=== PATIENT | female | born 1980 | race Caucasian/White ===

== ENCOUNTER 2017-11-08 14:32 | Emergency (ER) | payer OTHER ==
[~2017-11-08] VITALS: Ht 180.3 cm; Wt 74.8 kg
--- NOTE | 2017-11-08 14:32 | NUR ---
PT CAME BACK FOR DISCHARGE INSTRUCTIONS. PRESCRIPTION GIVEN.
[2017-11-08 14:35] VITALS: BP 148/74
[2017-11-08] MEDS ORDERED: KETOROLAC TROMETHAMINE INJ 30 MG/ML VIAL ONE (14:58)
[2017-11-08] MEDS ORDERED: HYDROCODONE/APAP 10/325MG 1 EA TABLET ONE (14:59)
[2017-11-08] MEDS ORDERED: HYDROCODONE/APAP 10/325MG 1 EA TABLET PO ONE (15:00)
[2017-11-08] MEDS ORDERED: KETOROLAC TROMETHAMINE INJ 30 MG/ML VIAL IM ONE (15:00)
--- NOTE | 2017-11-08 15:30 | NUR ---
pt left after medications were given, and did not wait for discharge instructions. CHACORTA Rizo, made aware.
== END 2017-11-08 16:08 | disposition left against medical advice (07) ==
LOC: ER 14:35
DX: M54.5 Low back pain (principal); I10 Essential (primary) hypertension; Z90.89 Acquired absence of other organs
CPT/HCPCS: A4606; J1885; Z7610

== ENCOUNTER 2024-01-16 22:58 | Emergency (ER) | payer MEDICAID, OTHER ==
[~2024-01-16] VITALS: Ht 175.3 cm; Wt 65.8 kg
[2024-01-16 23:21] VITALS: BP 124/91; TEMP 98.7
[2024-01-16] MEDS ORDERED: ACET-2030 PO (23:49)
[2024-01-16] MEDS ORDERED: KETO10TA2 PO (23:49)
[2024-01-16] MEDS ORDERED: KETOROLAC TROMETHAMINE 15 MG/ML VIAL ONE (23:58)
[2024-01-16] MEDS ORDERED: ACETAMINOPHEN ES 500 MG TABLET ONE (23:58)
[2024-01-17] MEDS: ACETAMINOPHEN ES 500 MG TABLET PO ONE (00:07)
[2024-01-17] MEDS: KETOROLAC TROMETHAMINE 15 MG/ML VIAL IM ONE (00:07)
[2024-01-17 00:08] VITALS: O2SAT 98
== END 2024-01-17 00:09 | disposition home or self-care (01) ==
LOC: ER 23:01
DX: K08.89 Other specified disorders of teeth and supporting structures (principal); I10 Essential (primary) hypertension; Z90.49 Acquired absence of other specified parts of digestive tract
CPT/HCPCS: 99283; 96372; J1885